=== PATIENT | female | born 1980 | race Two or more races ===

== ENCOUNTER 2022-02-27 18:16 | Emergency (ER) | payer OTHER ==
[~2022-02-27] VITALS: Ht 165.1 cm; Wt 97.7 kg
[2022-02-27 18:36] VITALS: BP 131/78
== END 2022-02-27 23:50 | disposition left against medical advice (07) ==
LOC: EMS 18:16
DX: R10.2 Pelvic and perineal pain (principal); Z53.21 Procedure and treatment not carried out due to patient leaving prior to being seen by health care provider

== ENCOUNTER 2022-12-15 16:45 | Emergency (ER) | payer OTHER ==
[~2022-12-15] VITALS: Ht 170.2 cm; Wt 90.0 kg
[2022-12-15 16:54] VITALS: TEMP 100.4
[2022-12-15] MEDS ORDERED: IBUPROFEN 600 MG TABLET PO ONE (17:15)
[2022-12-15 17:21] LABS: COVID AG,FIA SOURCE NASOPHARYNGEAL
[2022-12-15 17:39] LABS: INFLUENZA TYPE A NEGATIVE FOR TYPE A (NEGATIVE); INFLUENZA TYPE B NEGATIVE FOR TYPE B (NEGATIVE)
[2022-12-15 18:05] VITALS: BP 124/67; PULSE 103; RESP 16
== END 2022-12-15 18:15 | disposition home or self-care (01) ==
LOC: EMS 16:46
DX: U07.1 COVID-19 (principal); Z20.822 Contact with and (suspected) exposure to COVID-19
CPT/HCPCS: 71045; 87804; 99284

== ENCOUNTER 2024-12-13 02:30 | Emergency (ER) | payer OTHER ==
[~2024-12-13] VITALS: Ht 167.6 cm; Wt 95.5 kg
[2024-12-13] MEDS: IBUPROFEN 400 MG TABLET PO ONE (03:06)
[2024-12-13] MEDS: METOCLOPRAMIDE HCL 10 MG TABLET PO ONE (03:06)
[2024-12-13] MEDS: ACETAMINOPHEN 500 MG TABLET PO ONE (03:06)
[2024-12-13] MEDS ORDERED: METO5TAB95 PO (03:41)
[2024-12-13 04:14] VITALS: BP 132/76; PULSE 75; RESP 16; TEMP 97.3; O2SAT 100
== END 2024-12-13 04:16 | disposition home or self-care (01) ==
LOC: EMS 02:32
DX: G43.909 Migraine, unspecified, not intractable, without status migrainosus (principal)
CPT/HCPCS: 99284; Z7502; Z7610